=== PATIENT | male | born 1955 | race Caucasian/White ===

== ENCOUNTER 2017-02-01 22:09 | Inpatient (IN) | payer BC ==
[~2017-02-01] VITALS: Ht 185.4 cm; Wt 64.5 kg
--- NOTE | ~2017-02-01 | DS ---
PATIENT'S NAME: AMISHA CUEVA [facility] AGE: 61 Y [address] ROOM: [facility] [place], [place] [address] LOCATION: [facility] ADMIT DATE: 02/02/2017 Discharge Summary DISCHARGE DATE: 02/06/2017 FAMILY PHYSICIAN: Physician, Unknown ATTENDING PHYSICIAN: Dillon Barragan V PRINCIPAL DIAGNOSES: 1. Convulsion disorder. 2. Long-term alcohol abuse. 3. Coronary artery disease. HOSPITAL COURSE: A 61-year-old gentleman with a past medical history of coronary artery disease and long time alcohol abuse, presented to [facility] after he experienced 2 or 3 convulsive episodes witnessed by the friends. On admission to the hospital, a CAT scan of the head was done, which did show mild cerebral atrophy and advanced periventricular white matter disease consistent with microvascular disease. Lab work also did show BMP significant for hyponatremia which was hypovolemic hyponatremia. Neurology consultation was made and he was started on Keppra 500 mg p.o. b.i.d. Because this had been happening in the past as well, Neurology Recommended doing it for 3 months until they follow up with him. He was volume resuscitated with a banana bag and multivitamin including thiamine and folic acid. During the course of the hospitalization, his hyponatremia as well as hypovolemia resolved. Initially, it was felt that he was not very stable on his feet and consultation with [facility] was made, but they declined to accept the patient because he was doing too well. On the day of the discharge and the day prior to discharge, he was walking by himself and appeared pretty stable and was able to do all his ADLs. He was discharged home with a followup with Neurology attending and primary care physician. DISCHARGE MEDICATION: Include, 1. Aspirin 81 mg p.o. every day. 2. Lipitor 80 mg p.o. every day. 3. Folic acid 1 mg p.o. every day. 4. Keppra 500 mg p.o. twice daily. 5. Multivitamin 1 tablet p.o. every day. 6. Thiamine 100 mg p.o. twice daily. 7. Tylenol 650 mg p.o. every 6 hours p.r.n. . 8. Lisinopril 2.5 mg p.o. every day. 9. Atenolol 25 mg p.o. every day. DISCHARGE ACTIVITY: No driving or no swimming for three months until seen by Neurology. Consider abstinence from alcohol. Activity as mentioned above. Hemodynamics on discharge, stable. PATIENT'S NAME: AMISHA CUEVA [facility] AGE: 61 Y [address] ROOM: [place] [address] LOCATION: [facility] ADMIT DATE: 02/02/2017 Discharge Summary DISCHARGE DATE: 02/06/2017 FAMILY PHYSICIAN: Physician, Unknown ATTENDING PHYSICIAN: Dillon Barragan V MD KANNAN FELIX/jose r /[id number] d: 02/07/17 0246 t: 02/14/17 1507, DISCHARGE SUMMARY
--- NOTE | ~2017-02-01 | CON ---
PATIENT'S NAME: MANJIT CUEVA [facility] AGE: 61 Y [address] ROOM: [id number] [place], [place] [address] LOCATION: [facility] ADMIT DATE: 02/02/2017 Consultation DISCHARGE DATE: FAMILY PHYSICIAN: PHYSICIAN, UNKNOWN ATTENDING PHYSICIAN: PRABHAKAR SMITH V DATE OF CONSULTATION: 02/02/2017 REFERRING PHYSICIAN: VIVI KIMBLE MD NEUROLOGICAL CONSULTATION DATE AND TIME: 02/02/2017 at 0930 hours in the morning. REASON FOR CONSULTATION: The complaint would be seizure. HISTORY OF PRESENT ILLNESS: This is a 61-year-old male who is a known drinker of alcohol. Recently, he has had an extended hospitalization at [facility] in [place]. He was found down from a fall and was taken there. He was intubated for some time. His final diagnoses at [facility] were a non-STEMI; acute respiratory failure; acute kidney injury; alcohol withdrawal, severe; dysphagia and presumed aspiration; anemia; hypertension; acute rhabdomyolysis; hyponatremia; ground level fall; mild metabolic acidosis; and hypokalemia. He was mechanically intubated and ventilated during his stay there. He was discharged shortly after January 16. He had been staying with his sister, however, on the day of admission, he insisted on going to his own house. His son, who I personally talked to took him to his house and stayed with him. He had a friend come over and the friend witnessed an event where Manjit's eyes rolled in the back of his head. He stretched his neck out and he had 30 minutes of shaking. After that, he was basically unresponsive, and EMS was called and he was taken to [facility]. In the hospital, Rob witnessed another event along with the physician there where his eyes rolled back, his head was hyper extended. He could not open his fist and had a 30 second shaking episode. It was then decided that Manjit needed to come to [place] for neurological evaluation for possible seizures. As far as the alcohol intake, Manjit denies any alcohol intake since before his hospitalization at [facility]. His son also verifies this. When I asked him what he did drink he did say wine, beer, whatever, and did not quantify the amount he drank. When I ask him how he is feeling today he states he is making the best of a bad situation. He is kind of all over the place with his comments and not really focused and not a very good historian. REVIEW OF SYSTEMS: A 14-point review of systems was completed. Again the patient is not a great PATIENT'S NAME: MANJIT CUEVA [facility] AGE: 61 Y [address] ROOM: [place] [address] LOCATION: [facility] ADMIT DATE: 02/02/2017 Consultation DISCHARGE DATE: FAMILY PHYSICIAN: PHYSICIAN, UNKNOWN ATTENDING PHYSICIAN: PRABHAKAR SMITH V historian. He has no complaints at this time. PAST MEDICAL HISTORY: Has been gleaned from the chart from [facility]. Of note, the patient was on atorvastatin, lisinopril, aspirin, and atenolol when he was discharged from [facility]. He did take hydrochlorothiazide before his hospitalization, but due to low sodiums this was discontinued. PAST SURGICAL HISTORY: The patient denies having any surgery. SOCIAL HISTORY: The patient states he does use tobacco, but does not quantify the amount. He denies any recent alcohol use, but did drink up to about a year ago. FAMILY HISTORY: The patient is unable to provide the reason of of one brother, but he lost another brother to stroke and cancer. CURRENT MEDICATIONS: 1. Atorvastatin. 2. Lisinopril. 3. Aspirin. 4. Atenolol. PHYSICAL EXAMINATION: VITAL SIGNS: Temperature 98.2, pulse is 88, respirations 16, blood pressure 118/61, and oxygen saturations are 98% on room air. GENERAL: This is a malnourished, unkempt middle-aged male, who appears older than his stated age, in no acute distress. He participates with the interview. LUNGS: Clear to auscultation bilaterally. HEART: Regular S1 and S2. HEENT: Head is normocephalic and atraumatic. NEUROLOGIC: Pupils equal and reactive to light and accommodation. Extraocular movements intact. Muscle tone is normal. Muscle development is somewhat diminished. I did not watch the patient walk. His strength is maybe 4/5 and nonfocal. Reflexes intact 3/5, upper and lower. PSYCHIATRIC: Reveals tangential thought flow and labile mood and affect. No suicidal ideations noted. LABORATORY DATA AND IMAGING STUDIES: A CMS done at our facility does show a sodium of 129 which is improved on the sodium of 124 at [facility]. Potassium is 3.5. Of note, calcium is 8.1, albumin is 3.0. All other labs on the [facility] are within normal limits. Of course, PATIENT'S NAME: MANJIT CUEVA [facility] AGE: 61 Y [address] ROOM: [place] [address] LOCATION: [facility] ADMIT DATE: 02/02/2017 Consultation DISCHARGE DATE: FAMILY PHYSICIAN: PHYSICIAN, UNKNOWN ATTENDING PHYSICIAN: PRABHAKAR SMITH V magnesium is 1.5 and is being replenished. His serum osmolality is 262, vitamin B12 is 565, folate is 14.4, and TSH is 3.140. A CBC reveals a white count of 4.5, RBCs of 2.93, hemoglobin of 9.3, and hematocrit of 27.6. A urine drug screen was negative. Of note, his urine osmolality is 160, and his urine creatinine is 17. A CT scan of his head does show mild cerebral atrophy and advanced periventricular senescent white matter disease consistent with microvascular disease. No hemorrhages or masses or extra axial fluid collections were noted. There was a small retention cyst suspected at the apex of the left maxillary sinus. ASSESSMENT AND PLAN: In summary, this is a 61-year-old male with two witnessed convulsive episodes. The patient states he had a prodrome before the first one with the twitching of the lip. In talking with the patient's son, the patient's friend also states that this has happened at least three other times. The patient was not noted to be incontinent of urine. 1. Convulsive episodes. Alcohol withdrawal seizures usually happen between 2 and 48 hours after stopping alcohol. This does not appear to be an alcohol withdrawal seizure. We have reviewed the [facility] records and there is no imaging of his head, so we did order a CT of the head, which is negative. Other suspicious contributing factors could be his sodium of 129 which could definitely be due to his dietary and alcohol intake. Although seizure is not usually seen unless the sodium is below 120. This is a very interesting case with no clear-cut past. We will discuss the possibility of an AED and monitor the patient while providing a safe seizure precaution environment. We will continue with fluids and monitoring his sodium. Multivitamins, thiamine, and folate have already been instituted. He is on telemetry, and we will monitor his coronary artery disease since he is post [id number]-[id number] myocardial infarction. 2. The plan of care was discussed with Dr. Kimble. Thank you for the opportunity to participate in this patient's plan of care. If you have any questions, please let us know. JOHANA POOLE APRN FOR VIVI KIMBLE MD PP/modl /[id number] d: 02/02/17 2144 t: 02/18/17 1308, CONSULTATION REPORT
--- NOTE | ~2017-02-01 | HP ---
PATIENT'S NAME: AMISHA CUEVA [facility] AGE: 61 Y [address] ROOM: [address] [place], [place] [address] LOCATION: [facility] ADMIT DATE: 02/02/2017 History & Physical DISCHARGE DATE: FAMILY PHYSICIAN: PHYSICIAN, UNKNOWN ATTENDING PHYSICIAN: PRABHAKAR SMITH V DATE OF SERVICE: CHIEF COMPLAINT: Unresponsive episode. HISTORY OF PRESENT ILLNESS: HPI is obtained primarily from the transferring provider and the patient does not have any memory of the episode and his history is somewhat dubious. This is a 61-year-old male who denies any significant past medical history. He was observed to have had an episode of convulsions, clenched fists, and eyes rolling to the back of his head by a friend earlier last night. This lasted approximately 30 seconds and then the patient came back to and apparently was not confused. The patient was taken to the hospital in [place] by the friend and was witnessed to have another one of these events, The patient remembers actually that he has had a prodrome, which consisted of twitching in his lip, but aside from that, denies any other preceding or following symptoms. He does remember being transported by his friend in his car to the hospital. Of note, the patient has had a recent complex hospitalization at [facility] in [place]. He was treated there for a presumed respiratory failure due to mechanical fall, alcohol withdrawal, and rhabdomyolysis. He was in fact intubated and at some point required alcohol detoxification. While at [facility], he categorically denied any history of alcohol use or abuse. Per [facility] discharge documentation provided to me from [place], it appears that based on the reports from the family, the treatment team there was convinced that the patient has considerable alcoholism and withdrawal. In fact, he was advised to go to assisted care facility, but chose to go home. The patient tells me that he has been staying with his sister up until approximately 2-3 days ago. He then moved back to his house and has not been eating or drinking because he has been dealing with " this." When asked him what this is, he becomes quite aggravated, and does not fully describe exactly what is bothering him. His thoughts are somewhat tangential and he is not fully oriented. He denies any chest pain, shortness of breath, nausea, vomiting, diarrhea, chest pain, or palpitations. PATIENT'S NAME: AMISHA CUEVA [facility] AGE: 61 Y [address] ROOM: [place] [address] LOCATION: [facility] ADMIT DATE: 02/02/2017 History & Physical DISCHARGE DATE: FAMILY PHYSICIAN: PHYSICIAN, UNKNOWN ATTENDING PHYSICIAN: PRABHAKAR SMITH V REVIEW OF SYSTEMS: All 10 systems have been reviewed and are negative aside from pertinent positives mentioned above. PAST MEDICAL HISTORY: This is gathered primarily from the discharge summary from outside hospital. He did have a non-STEMI, which was treated medically. He had rhabdomyolysis and respiratory failure due to presumed alcohol withdrawal. The patient actually denies any additional history. PAST SURGICAL HISTORY: The patient denies. SOCIAL HISTORY: The patient endorses ongoing tobacco use, but does not quantify the amount. He categorically denies any recent alcohol use, but does state that he was drinking up to about a year ago. This statement is suspect. FAMILY HISTORY: The patient is a poor historian, but he does report that he lost 2 brothers, one of them recently to stroke/cancer, again unclear what specifically he means. CURRENT MEDICATIONS: I am not sure if the patient is taking,these are: 1. Atorvastatin. 2. Lisinopril. 3. Aspirin. 4. Atenolol. PHYSICAL EXAMINATION: VITAL SIGNS: Temperature 98.3, pulse is 91, respirations are 16, blood pressure 118/61, and satting 98% on room air. GENERAL: A malnourished appearing middle-aged male in no acute distress. SKIN: Somewhat sweaty and beady, but aside from that, it is warm. NEUROLOGIC: Exam is grossly nonfocal aside from a possible slight right-sided droop, which I think is more of a function of his facial anatomy, which is asymmetrical. LYMPHATIC: Exam shows no cervical lymphadenopathy. ENDOCRINE: Exam shows no thyromegaly. LUNGS: Clear to auscultation. HEART: Rate is regular. No appreciable murmurs, gallops, or rubs. ABDOMEN: Soft, nontender, nondistended. PATIENT'S NAME: AMISHA CUEVA [facility] AGE: 61 Y [address] ROOM: [place] [address] LOCATION: [facility] ADMIT DATE: 02/02/2017 History & Physical DISCHARGE DATE: FAMILY PHYSICIAN: PHYSICIAN, UNKNOWN ATTENDING PHYSICIAN: PRABHAKAR SMITH V : Exam reveals no costovertebral angle tenderness. VASCULAR: Exam shows 2+ pedal pulses. MUSCULOSKELETAL: Exam is unremarkable. PSYCHIATRIC: Exam reveals tangential thought flow and quite easily labile mood and affect, but no suicidal ideations. LABORATORY DATA: Review of the studies from outside facility showed that his sodium is 124. EKG shows normal sinus rhythm at 73 beats per minute. ASSESSMENT AND PLAN: This is a 61-year-old male who will be admitted with 2 reported convulsive episodes. Individual problems to be addressed as follows: 1. Convulsive episodes. I strongly suspect that the patient does have a history of alcoholism and may be in fact withdrawing from alcohol. We will start him on a modified Librium taper with p.r.n. Ativan. We will request a more complete workup that was done at [facility] including possible MRI. If no MRI has been done, we will do one here. We will monitor the patient on telemetry and obtain Neurology evaluation in the morning. It will be helpful to have some information from the parties who witnessed the event. 2. Hyponatremia. This appears to be related to beer potomania. We will recheck his electrolytes as he did have fluids at the outside facility. We will also check his urine for urine osmolality and urine sodium. We will monitor his electrolytes. 3. Suspected alcoholism. We will treat the patient with multivitamin, thiamine, and folate supplementation. 4. Tobacco use. The patient was counseled on tobacco cessation for 5+ minutes. We will provide him a nicotine patch. 5. History of coronary artery disease. We will continue him on his current cardiac regimen. Additional management will depend on clinical course. Time dedicated to this patient encounter is 35 minutes. MD LESLEE CABELLO/jose r /[id number] D: [id number] T: [id number] HISTORY & PHYSICAL
[2017-02-02 02:04] LABS: BASOPHIL % 0.7 %; EOSINOPHIL # 0.1 K/uL (0.0-0.5); EOSINOPHIL % 2.7 %; HEMATOCRIT 27.6 % (37.0-53.0); HEMOGLOBIN 9.3 g/dL (11.0-16.0); IMMATURE GRANULOCYTE % 0.4 %; LYMPHOCYTE # 1.2 K/uL (0.8-4.0); LYMPHOCYTE % 26.8 %; MCH 31.7 pg (27.0-34.0); MCHC 33.7 gm/dL (32.0-36.5); MCV 94.2 fl (83.0-98.0); MONOCYTE # 0.4 K/uL (0.0-1.0); MONOCYTE % 9.8 %; MPV 11.3 fl (9.4-12.4); NEUTROPHIL # (ANC) 2.7 K/uL (1.4-9.0); NEUTROPHIL % 59.6 %; NRBC % 0 /100WBC (0-0.00); PLATELET COUNT 273 K/uL (150-450); RBC 2.93 M/uL (3.50-5.50); RDW-CV 13.2 % (11.9-14.6); WBC 4.5 K/uL (4.0-11.0)
[2017-02-02 02:27] LABS: ALK PHOS 78 IU/L (33-138); ALT 32 IU/L (12-78); ANION GAP 11.5 (10.0-19.0); AST 22 IU/L (10-40); BLOOD UREA NITROGEN 6 mg/dL (6-24); CALCIUM 8.1 mg/dL (8.5-10.5); CHLORIDE 98 mMol/L (96-110); CO2 23 mMol/L (22-32); CPK 120 IU/L (35-332); CREATININE 0.8 mg/dL (0.6-1.3); ESTIMATED GFR (MDRD EQUATION) > 60; MAGNESIUM 1.5 mg/dL (1.8-2.6); PHOSPHORUS 3.2 mg/dL (2.5-4.9); POTASSIUM 3.5 mMol/L (3.7-5.1); SODIUM 129 mMol/L (135-145); TOTAL BILIRUBIN 0.3 mg/dL (0.0-1.5)
[2017-02-02 03:04] LABS: BARBITURATE NEGATIVE (NEGATIVE); COCAINE NEGATIVE (NEGATIVE); OPIATES NEGATIVE (NEGATIVE)
[2017-02-02 03:06] LABS: AMPHETAMINE NEGATIVE (NEGATIVE)
[2017-02-02] MEDS ORDERED: LIPITOR80 MG PO (03:26)
[2017-02-02] MEDS ORDERED: ZESTRIL2.5 MG PO (03:26)
[2017-02-02] MEDS ORDERED: ASPIRIN (CHILDR81 MG PO (03:26)
[2017-02-02] MEDS ORDERED: TENORMIN25 MG PO (03:27)
--- NOTE | 2017-02-02 04:02 | NUR ---
Patient arrived from [facility] at 0015. Patient initially cooperative with letting me get him hooked up to monitor and asking minimal questions/small talk. Dr. Barragan came to the room shortly after patient arrived. I went in to assess patient after Dr. Barragan assessed him and patient was very agitated and irritable. Refused to answer medical history questions and very rude. States it is disrespectful and he takes it personally that we ask if he smokes or drinks. States we should talk with the other hospital and look at his paperwork, etc, if we want to learn anything about him because he is not the doctor. Refused a thorough assessment. C/O back pain r/t ambulance ride. Moves spontaneously and follows commands. VSS. Patient has impaired memory. Per transfer papers/EMS: Around 4pm patient was with a friend when the friend observed the patient become "stiff as a board" in the chair and his eyes rolled to the back of his head. This latest for approximately 1 minute. The patient was taken to the hospital in [place] and had another one of these episodes around 2029. He was just at [facility] last month d/t an unresponsive episode which required intubation. Past medical history: non-stemi elevated myocardial infarction, acute respiratory failure, acute kidney injury, severe alcohol withdraw, anemia, dysphagia and pressured speech, HTN, acute rhabdomyolysis, hypernatremia, ground level fall, mild metabolic acidosis, hypokalemia Surgical history: bronchoscopy Allergies: PCN Unable to assess vaccinations at this time. Has had Tylenol for pain and has been able to sleep this shift. Monitor for detox. Banana bag daily. Started on Librium. On room air. VSS. Afebrile. IV to left hand infusing with no complications. Uses urinal without difficulty.
--- NOTE | 2017-02-02 15:55 | NUR ---
Significant Event: Patient A/O X3. Drowsy at times. Moves everything spontaneously. Follows commands. No seizure acitivity this shift. PERRLA. Denies N/T. VSS. Sinus javad. Afebrile. Room air with sats in the mid 90s. LS clear and diminished. Voids per urinal. No apparent skin issues. PIV to L) forearm infusing with no complications. 1 assist with gaitbelt. Denies pain. CT this shift. Pleasant and cooperative with cares. Follow up:
[2017-02-02 19:16] LABS: ANION GAP 12.9 (10.0-19.0); BLOOD UREA NITROGEN 6 mg/dL (6-24); CALCIUM 8.3 mg/dL (8.5-10.5); CHLORIDE 99 mMol/L (96-110); CO2 25 mMol/L (22-32); CREATININE 0.8 mg/dL (0.6-1.3); ESTIMATED GFR (MDRD EQUATION) > 60; POTASSIUM 3.9 mMol/L (3.7-5.1); SODIUM 133 mMol/L (135-145)
--- NOTE | 2017-02-03 04:07 | NUR ---
Significant Event: a/ox3. forgetful. drowsy. moves all extremities spontaneously and to command. denies numbness and tingling. denies rivera. no seizures this shift. vss on room air. sinus javad. up 1 assist with gait belt. unsteady. iv to left forearm running banana bag at 75ml/hr. keppra started, ciwa discontinued. lisinopril and tenormin help due to low bps. Follow up: follow up outpatient for eeg.
[2017-02-03 04:15] LABS: BASOPHIL % 0.7 %; EOSINOPHIL # 0.2 K/uL (0.0-0.5); EOSINOPHIL % 5.3 %; HEMATOCRIT 27.2 % (37.0-53.0); HEMOGLOBIN 9.1 g/dL (11.0-16.0); IMMATURE GRANULOCYTE % 0.5 %; LYMPHOCYTE % 23.4 %; MCH 31.8 pg (27.0-34.0); MCHC 33.5 gm/dL (32.0-36.5); MCV 95.1 fl (83.0-98.0); MONOCYTE # 0.6 K/uL (0.0-1.0); MONOCYTE % 13.1 %; NEUTROPHIL # (ANC) 2.5 K/uL (1.4-9.0); NRBC % 0 /100WBC (0-0.00); PLATELET COUNT 231 K/uL (150-450); RBC 2.86 M/uL (3.50-5.50); RDW-CV 13.2 % (11.9-14.6); WBC 4.4 K/uL (4.0-11.0)
[2017-02-03 04:24] LABS: ANION GAP 9.6 (10.0-19.0); BLOOD UREA NITROGEN 7 mg/dL (6-24); CALCIUM 8.3 mg/dL (8.5-10.5); CHLORIDE 104 mMol/L (96-110); CO2 24 mMol/L (22-32); CREATININE 0.8 mg/dL (0.6-1.3); ESTIMATED GFR (MDRD EQUATION) > 60; POTASSIUM 3.6 mMol/L (3.7-5.1); SODIUM 134 mMol/L (135-145)
--- NOTE | 2017-02-03 17:26 | NUR ---
Significant Event: a/o x 3. forgetful. not oriented to age. very slow to respond to questions asked. no seizures since admission to [facility]. Moves all extremities on command/spontaneously. equal strength throughout. denies numbness/tingling. voids per urinal/bathroom. ambulates with two assist. gait is very unsteady- legs are both very jerky with ambulation. Takes meds whole. Cardiac diet. Update to patient's son per Sierra Cueva APRN with son requesting transfer to [place] or [facility] bed upon discharge.
[2017-02-04 04:05] LABS: HEMOGLOBIN 9.1 g/dL (11.0-16.0)
[2017-02-04 04:23] LABS: ANION GAP 11.1 (10.0-19.0); BLOOD UREA NITROGEN 7 mg/dL (6-24); CALCIUM 8.2 mg/dL (8.5-10.5); CHLORIDE 105 mMol/L (96-110); CO2 22 mMol/L (22-32); CREATININE 0.8 mg/dL (0.6-1.3); ESTIMATED GFR (MDRD EQUATION) > 60; POTASSIUM 4.1 mMol/L (3.7-5.1); SODIUM 134 mMol/L (135-145)
--- NOTE | 2017-02-04 04:23 | NUR ---
Significant Event: A/OX3. FORGETFUL AT TIMES. DENIES NUMBNESS AND TINGLING. MOVES ALL EXTREMITIES SPONTANEOUSLY AND TO COMMAND. BRADYCARDIC. VSS ON ROOM AIR. WALKED LAPS IN HALLWAY - 1 ASSIST AND GAIT BELT. NO SEIZURES. NO COMPLAINTS OF PAIN. IV TO LEFT FOREARM INFUSING BANANA BAG AT 75ML/HR. CARDIAC DIET. TAKES MEDS WHOLE. LESS DROWSY THAN NIGHT BEFORE AND ABLE TO HOLD CONVERSATION AND REMEMBER PARTS OF PREVIOUS CONVERSATIONS. Follow up: PT/OT TO SEE TODAY.
--- NOTE | 2017-02-04 11:02 | NUR ---
Introduced self and CM role to Manjit. Manjit tells me that he lives at home alone in [place], [place] and he is planning on returning there upon discharge. I let him know that I had talked with Evelyn Luis Angel prior to coming into his room and she shared with me that he had admitted to his alcohol use/abuse so she wanted to make sure resources were provided to him. I did gather a list of resources for inpatient/outpatient/AA meetings and counselors for Manjit. He states to me,"You can leave that stuff here but I'm not going to get help so it will just be a waste." Let him know that I was still going to leave it with him and if he decided not to use it than it was fine. I also talked to him about the concerns we had about him going home alone. "I have to get back to work lady, I am not going anywhere but home." I brought up options such as RESIDENTIAL, [facility], living with his sister or his kids for a while just so he got to be a bit more steady on his feet. He once again tells me,"I am not going anywhere but home, so stop trying to get me to a place other than there." I let him know that I was just trying to look out for his safety and provide him with what resources I could. I did ask him who would be able to come and pick him up when he was going to be dismissed. He states he doesn't know. Encouraged him to try to find a ride for tomorrow today as I didn't have any way to get him home from here. He states, "If all else fails I will just walk." I let him know that I think that he needed to find a friend, family, coworker or neighbor to come and pick him up. He tells me he will work on this. I asked if he wanted me to call his son and update him. He states,"You do whatever you want to do, but he bites and he is mean, so you just do whatever you think you want to do." I told him that I would try to make contact with his son Rob later today to update him and see if he might be able to come and transport him home when he was dismissed. Inquired if Manjit thinks that he would need or benefit from a FWW at home. "I don't want one of those, they just get in my way, they tried making me use one of those in [place] and it was a pain in my ass I don't want one." He denies any other questions, needs or concerns. CM to continue to follow and assist. Plan home. Updated TELLY Bhatt, TELLY Yeung and Evelyn Elmore to all of the above and that he is refusing to go anywhere but home and that I have given him resources for his alcohol issues and he is refusing that treatment at well. All voice understanding to this. Will try to touch base with son Rob this afternoon and update him as well.
--- NOTE | 2017-02-04 16:55 | NUR ---
Significant Event: a/o x 3. denies pain. speech normal (slow yesterday). conversationally appropriate. slightly unsteady with ambulation. ambulates with gait belt and one assist. steady when walking straight and slightly unsteady with turns. Much improved from yesterday. takes meds whole. Cardiac diet. IV to Left forearm with normal saline infusing at 125ml/hr x 1 liter. Tele sinus javad with HR of 44. no seizures since in [place] prior to transfer to [facility]. Dr. Schmitz and [facility] caregiver services home both spoke with patients son Rob. about discharge to home tomorrow. patient voiced concerns his son was going to make him go to [facility] but did could not verify if he does indeed plan on picking him up tomorrow and when. Patient stated his wishes is to go home and resume work.
[2017-02-05 04:16] LABS: ANION GAP 10.8 (10.0-19.0); BLOOD UREA NITROGEN 7 mg/dL (6-24); CALCIUM 7.9 mg/dL (8.5-10.5); CHLORIDE 105 mMol/L (96-110); CO2 24 mMol/L (22-32); CREATININE 0.8 mg/dL (0.6-1.3); ESTIMATED GFR (MDRD EQUATION) > 60; POTASSIUM 3.8 mMol/L (3.7-5.1); SODIUM 136 mMol/L (135-145)
--- NOTE | 2017-02-05 05:01 | NUR ---
Significant Event: Patient A/O x 3. Tired this shift. Moves all extremities spontaneously and to command. Denies N/T. Lungs slightly coarse on room air. Cardiac diet. No bm this shift. Bowels active. Left forearm PIV saline locked. Takes meds whole. VSS. Bradycardia at times. Follow up: D/C to home today??
--- NOTE | 2017-02-05 10:22 | NUR ---
Talked with Dr. Davis and Evelyn Elmore. It was communicated to me that Manjit still was a bit unstead on his feet and might benefit from a short SWB stay if he would agree to this. Dr. Davis also states that he won't be able to drive right away [place] concerned about him going straight home. I did go in and visit with Manjit about going to a SWB for a short skilled stay before going home. He isn't super excited about this but states,"You can just do whatever you want to do. I am not staying there long though, I have to get back to work." I let him know that SWB stays were typically short but I wasn't able to give him the exact number of days that he would be there. I asked if he had a preference on which SWB he went to and he tells me that [facility] is the closest place for him so he would be open to going there. I let him know that I was going to gather information to fax a referral over to Alda Blake SWB coordinator at [facility] and then once I heard back from her, I would update him. He was fine with this. Called and left a VM with Alda Blake, asking her if they had any open male beds and to let her know that I was going to fax over a referral to her on Manjit. He would be ready as soon as they could accept and that they would need to do the insurance precert before he would be able to come. Referral was faxed. Will follow up with Vicki later today to see if/when they could potentially take to SWB. CM to continue to follow and assist.
--- NOTE | 2017-02-05 17:46 | NUR ---
Significant Event: Patient is alert and oriented x3. Forgetful at times. Slow speech. Inappropiate and withdrawn at times. PERRLA. Denies N/T, MERINO. Pulses palpable. Seizure precautions. LS are slightly coarse throughout. RA.Occasional cough. SR. Frustrated at times r/t current situation. discharge tomorrow, Follow up:
--- NOTE | 2017-02-05 17:47 | NUR ---
Significant Event: D/C tele Follow up:
--- NOTE | 2017-02-06 05:24 | NUR ---
Significant Event: AAOx3, denies N/T. PERRLA 3mm brisk. Equal strong strength throughout. Systolic 130's, HR 50-80's. L.S. slightly coarse in upper lobes, on RA. B.S. active, last BM 02/01. Urinates per urinal. PIV L) hand SL'd. Denies pain. SBA for transfers. Regular diet. Takes medicaitons whole. Follow up: Home today
[2017-02-06] MEDS ORDERED: THIAMINE HCL100 MG PO (11:25)
[2017-02-06] MEDS ORDERED: FOLIC ACID1 MG PO (11:26)
[2017-02-06] MEDS ORDERED: KEPPRA500 MG PO (11:26)
--- NOTE | 2017-02-06 14:48 | NUR ---
Significant Event: PT ALERT AND ORIENTED X3. PERRLA. FLAT AFFECT/WITHDRAWN. COOPERATIVE WITH CARES. EQUAL STRENGTH X4. TRANSFERS WITH STAND-BY ASSIST/GAIT BELT. VOIDS PER URINAL/BATHROOM. VITAL SIGNS STABLE; ON ROOM AIR. NO TELEMETRY PER MD ORDER. 1+EDEMA TO BILATERAL ANKLES. REFUSES TO WEAR BILATERAL CALF PUMPS. HAS BEEN UP IN THE CHAIR SINCE BREAKFAST. ATE 100% OF BREAKFAST. DENIES ANY PAIN. REFUSED TO SHOWER THIS MORNING. LAST BM ON 02/01/17; REFUSED ANY PRN LAXATIVES/STOOL SOFTENERS. PASSING FLATUS; STATES THAT HE DOES NOT FEEL UNCOMFORTABLE. ORDERS WERE WRITTEN THAT THE PT MAY BE DISMISSED HOME TODAY. IV TO L)HAND D/C'D. DISCHARGE PAPERWORK WAS GIVEN TO THE PT AND HIS FAMILY AND THEY VERBALIZED UNDERSTANDING. PT DISMISSED TO THE FRONT LOBBY AT 1250 PER [facility] BILLING DEPARTMENT SUPERVISOR, VIA WHEELCHAIR WITH BELONGINGS.
--- NOTE | 2017-02-06 14:54 | NUR ---
02/06/17: ON DISCHARGE TEACHING, THE MEDICATIONS AND NO DRIVING/SWIMMING WAS RE-INFORCED SEVERAL TIMES. FOLLOW-UP APPOINTMENTS WERE ALSO RE-INFORCED. THE PT AND HIS FAMILY STATED THAT THEY WERE GOING TO TRY AND FIGURE OUT A WAY FOR THE PT TO BE TRANSPORTED TO HIS FOLLOW-UP APPOINTMENTS, ETC. TELLY OSWALD
== END 2017-02-06 12:47 | disposition disaster alternative care site (69) | DRG 896 ==
LOC: GNTU 02-02 00:06
PROVIDERS: Internal Medicine; Nurse Practitioner Family; ADMIT Internal Medicine
DX: F10.239 Alcohol dependence with withdrawal, unspecified (principal); G93.40 Encephalopathy, unspecified; R56.9 Unspecified convulsions; E44.1 Mild protein-calorie malnutrition; E87.1 Hypo-osmolality and hyponatremia; D64.9 Anemia, unspecified; I25.10 Atherosclerotic heart disease of native coronary artery without angina pectoris; I10 Essential (primary) hypertension; E87.6 Hypokalemia; E86.1 Hypovolemia; I25.2 Old myocardial infarction; Z79.82 Long term (current) use of aspirin; F17.290 Nicotine dependence, other tobacco product, uncomplicated
CPT/HCPCS: J3475; J7030

== ENCOUNTER → 2017-02-01 | Outpatient (CLI) | payer BC ==
[~2017-02-01] MED LIST: ASPIRIN (CHILDR81 MG PO; FOLIC ACID1 MG PO; KEPPRA500 MG PO; LIPITOR80 MG PO; TENORMIN25 MG PO; THIAMINE HCL100 MG PO; ZESTRIL2.5 MG PO
== END | disposition disaster alternative care site (69) ==
LOC: GAMB 21:50
DX: R56.9 Unspecified convulsions (principal); I21.4 Non-ST elevation (NSTEMI) myocardial infarction; D64.9 Anemia, unspecified; I10 Essential (primary) hypertension; Z79.899 Other long term (current) drug therapy; Z88.0 Allergy status to penicillin

== ENCOUNTER → 2017-02-01 | Outpatient (CLI) | payer BC | END | disposition disaster alternative care site (69) | LOC: GAMB 21:50 | DX: R56.9 Unspecified convulsions (principal); D64.9 Anemia, unspecified; I10 Essential (primary) hypertension; M62.82 Rhabdomyolysis; F10.10 Alcohol abuse, uncomplicated; Z79.82 Long term (current) use of aspirin; Z79.899 Other long term (current) drug therapy; Z88.0 Allergy status to penicillin | CPT/HCPCS: A0425; A0426 ==